=== PATIENT | male | born 1975 | race Caucasian/White ===

== ENCOUNTER 2017-06-10 19:36 | Observation (INO) ==
[2017-06-10] MEDS ORDERED: 0.9 % Sodium Chloride 1,000 ML IVC ONE ×2 (20:52→21:29)
[2017-06-10] MEDS ORDERED: Ondansetron 4 MG/2 ML VIAL IVP ONE (20:53)
[2017-06-10] MEDS ORDERED: *HR* HYDROmorphone (PF) 1 MG/ML SYRINGE IVP ONE ×2 (20:53→21:50)
--- NOTE | 2017-06-10 20:55 | Emergency Department Note ---
START Narrative - START START: 41-year-old male who comes in complaining of epigastric pain nausea vomiting. Had diarrhea 2 days ago. She states the pain is severe. It is going to have tenderness in the epigastrium. Obtain an imaging of lab give pain meds and IV fluids. Patient is tachycardic at 125.
[2017-06-10 21:09] LABS: Basophils # 0.1 K/mcL (0.0-0.2); Basophils % 0.6 %; Eosinophils % 0.1 %; Hemoglobin 14.6 g/dL (12.9-16.9); Immature Granulocytes % 0.7 % (0-4); Lymphocytes # 1.9 K/mcL (0.6-4.6); Mean Corpuscular Hemoglobin 29.4 pg (28.0-33.3); Mean Corpuscular Volume 86.5 fL (83.0-100.0); Mean Platelet Volume 8.8 fL (9.4-12.4); Monocytes % 4.8 %; Neutrophils # 18.2 K/mcL (1.6-8.9); Platelet Count 469 K/mcL (140-400); Red Blood Count 4.97 M/mcL (4.19-5.50); Red Cell Distribution Width 12.5 % (11.5-14.5); Segmented Neutrophils % 84.8 %
[2017-06-10 21:23] LABS: Bilirubin,Urine Negative (Negative); Blood,Urine Negative (Negative); Clarity,Urine Turbid (Clear); Color,Urine Yellow (Yellow); Glucose,Urine (UA) Normal (Normal); Ketones,Urine Negative (Negative); Leukocyte Esterase,Urine Negative (Negative); Nitrite,Urine Negative (Negative); Protein,Urine 100 mg/dL (Neg-Trace); Specific Gravity,Urine 1.014 (1.010-1.025); Urobilinogen,Urine Normal (Normal)
[2017-06-10 21:25] LABS: Bacteria,Urine None Seen per hpf (None-Few); Hyaline Casts,Urine None Seen per lpf (None-Few); RBC,Urine 15-30 per hpf (0-3); Squamous Epithelial Cell,Urine Many per lpf (None-Few); WBC,Urine 0-3 per hpf (0-3)
--- NOTE | 2017-06-10 21:30 | Emergency Department Note ---
Disposition Clinical Impression: Acute pancreatitis Qualifiers: Pancreatitis type: unspecified pancreatitis type Acute pancreatitis complication: unspecified Qualified Code(s): K85.90 - Acute pancreatitis without necrosis or infection, unspecified Disposition: Admitted As Inpatient Condition: Good Forms: ED Satisfaction Letter, Work/School Release General Adult HPI - General Chief complaint: ED Abdominal Pain Stated complaint: "Severe Abd Pain/N/V" Time Seen by Provider: 06/10/17 20:52 Source: patient, family Limitations: no limitations Nursing Notes Reviewed: Yes Vital Signs Reviewed: Yes - History of Present Illness HPI Narrative: 41-year-old male who reports that after lunch had relatively sudden onset of epigastric and mid abdomen pain he had nausea and vomiting associated with it. He has vomited numerous times since. The pain has improved. He does have difficulty finding a position of comfort. He denies any medical history. Denies taking any medications. He does admit to some alcohol use where he drinks one or 2 beers every couple of days. His most recent drink was 2 days ago. He states that he felt normal prior to lunch today. He denies any fever. Radiation: non-radiation Pain Severity: severe Pain Scale: 10 Consistency: constant Improves with: nothing Worsens with: nothing Associated symptoms: Reports: denies other symptoms Treatments Prior to Arrival: none - Related Data Home Medications Medication Instructions Recorded Confirmed Ibuprofen [Motrin] 400 mg PO Q6H PRN 06/10/17 06/10/17 Allergies Allergy/AdvReac Type Severity Reaction Status Date / Time Bee Pollen Allergy See Verified 06/10/17 20:49 Comments All systems ED: reviewed and negative except as stated. Constitutional: Denies: fever ENT ED: Denies: throat pain Cardiovascular: Denies: chest pain Gastrointestinal: Reports: abdominal pain, nausea, vomiting. Denies: diarrhea, constipation Genitourinary: Denies: dysuria Integumentary: Denies: rash Past Medical History - Past Medical History Medical history: Reports: non-contributory Psychiatric history: Reports: anxiety - Social History Smoking Status: Current every day smoker Smokeless Tobacco Status: No Alcohol use: Reports: rarely Drug use: Reports: none Physical Exam - General Limitations: no limitations General appearance: alert - Head Head exam: atraumatic - Eye Eye exam: Present: normal appearance, PERRL - ENT ENT exam: normal exam - Neck Neck exam: Present: normal inspection - Chest Chest inspection: Present: normal inspection - Respiratory Respiratory exam: Present: normal lung sounds bilaterally. Absent: respiratory distress - Cardiovascular Cardiovascular exam: Present: regular rate, normal rhythm - Abdominal Exam Abdominal exam: Present: soft, tenderness (epigastric pain on palpation.), guarding. Absent: rebound - Extremities Exam Extremities exam: Present: normal inspection - Neurological Exam Neurological exam: Present: alert, oriented X3 - Psychiatric Psychiatric exam: Present: normal affect, normal mood - Skin Skin exam: Present: warm, dry Course Course Narrative: CT shows stranding around the pancreas. amylase/lipase elevated. Clinically has pancreatitis also. Will treat with pain meds/fluids and admit. Vital Signs Temperature 97.9 F 06/10/17 20:49 Pulse Rate 125 06/10/17 20:49 Respiratory Rate 18 06/10/17 20:49 Blood Pressure 136/96 06/10/17 20:49 O2 Sat by Pulse Oximetry 96 06/10/17 20:49 Temperature 97.9 F 06/10/17 20:49 Pulse Rate 124 06/10/17 21:23 Respiratory Rate 20 06/10/17 21:23 Blood Pressure 138/89 06/10/17 21:23 O2 Sat by Pulse Oximetry 97 06/10/17 21:23 Oxygen Delivery Oxygen Delivery Room Air Medical Decision Making - Medical Records Medical records reviewed: Yes I reviewed the patient's medical records. - Lab Data Lab results reviewed: Yes I reviewed the patient's lab results. Result diagrams: 06/10/17 20:58 06/10/17 20:58 Lab Results 06/10/17 06/10/17 06/10/17 Range/Units 20:58 20:58 20:58 WBC 21.5 H (4.3-11.1) K/mcL RBC 4.97 (4.19-5.50) M/mcL Hgb 14.6 (12.9-16.9) g/dL Hct 43.0 (37.5-50.1) % MCV 86.5 (83.0-100.0) fL MCH 29.4 (28.0-33.3) pg MCHC 34.0 (31.6-35.5) g/dL RDW 12.5 (11.5-14.5) % Plt Count 469 H (140-400) K/mcL MPV 8.8 L (9.4-12.4) fL Immature Gran % 0.7 (0-4) % Seg Neutrophils % 84.8 % Lymphocytes % 9.0 % Monocytes % 4.8 % Eosinophils % 0.1 % Basophils % 0.6 % Neutrophils # 18.2 H (1.6-8.9) K/mcL Lymphocytes # 1.9 (0.6-4.6) K/mcL Monocytes # 1.0 (0.0-1.3) K/mcL Eosinophils # 0.0 (0.0-0.6) K/mcL Basophils # 0.1 (0.0-0.2) K/mcL Sodium 139 (136-145) mEq/L Potassium 4.0 (3.5-5.1) mEq/L Chloride 94 L (98-107) mEq/L Carbon Dioxide 37 H (23-29) mEq/L BUN 11 (6-20) mg/dL Creatinine 0.81 (0.70-1.30) mg/dL Est GFR ( Amer) > 60 (> 60) Est GFR (Non-Af Amer) > 60 (> 60) BUN/Creatinine Ratio 14 (6-26) Glucose 121 H (70-105) mg/dL Calculated Osmolality 289 (280-300) Lactic Acid 2.3 H (0.5-2.2) mmol/L Calcium 10.4 H (8.6-10.3) mg/dL Total Bilirubin 0.5 (0.3-1.0) mg/dL Direct Bilirubin 0.1 (0.0-0.2) mg/dL Indirect Bilirubin 0.4 (0.0-1.2) mg/dL AST 23 (13-39) Units/L ALT 21 (7-52) Units/L Alkaline Phosphatase 77 (34-104) Units/L Serum Total Protein 7.6 (6.4-8.9) g/dL Albumin 4.6 (3.5-5.7) g/dL Globulin 3.0 (2.4-3.5) g/dL Albumin/Globulin Ratio 1.5 (1.1-2.2) Amylase 222 H (29-103) Units/L Lipase 690 H (11-82) Units/L Urine Color (Yellow) Urine Clarity (Clear) Urine pH (5.0-8.0) pH Units Ur Specific [place] (1.010-1.025) Urine Protein (Neg-Trace) mg/dL Urine Glucose (UA) (Normal) mg/dL Urine Ketones (Negative) mg/dL Urine Blood (Negative) Urine Nitrite (Negative) Urine Bilirubin (Negative) Urine Urobilinogen (Normal) mg/dL Ur Leukocyte Esterase (Negative) Urine Microscopic RBC (0-3) per hpf Urine Microscopic WBC (0-3) per hpf Ur Squamous Epith Cells (None-Few) per lpf Urine Bacteria (None-Few) per hpf Hyaline Casts (None-Few) per lpf Ur Culture Indicated? (NO) 06/10/17 Range/Units 21:19 WBC (4.3-11.1) K/mcL RBC (4.19-5.50) M/mcL Hgb (12.9-16.9) g/dL Hct (37.5-50.1) % MCV (83.0-100.0) fL MCH (28.0-33.3) pg MCHC (31.6-35.5) g/dL RDW (11.5-14.5) % Plt Count (140-400) K/mcL MPV (9.4-12.4) fL Immature Gran % (0-4) % Seg Neutrophils % % Lymphocytes % % Monocytes % % Eosinophils % % Basophils % % Neutrophils # (1.6-8.9) K/mcL Lymphocytes # (0.6-4.6) K/mcL Monocytes # (0.0-1.3) K/mcL Eosinophils # (0.0-0.6) K/mcL Basophils # (0.0-0.2) K/mcL Sodium (136-145) mEq/L Potassium (3.5-5.1) mEq/L Chloride (98-107) mEq/L Carbon Dioxide (23-29) mEq/L BUN (6-20) mg/dL Creatinine (0.70-1.30) mg/dL Est GFR ( Amer) (> 60) Est GFR (Non-Af Amer) (> 60) BUN/Creatinine Ratio (6-26) Glucose (70-105) mg/dL Calculated Osmolality (280-300) Lactic Acid (0.5-2.2) mmol/L Calcium (8.6-10.3) mg/dL Total Bilirubin (0.3-1.0) mg/dL Direct Bilirubin (0.0-0.2) mg/dL Indirect Bilirubin (0.0-1.2) mg/dL AST (13-39) Units/L ALT (7-52) Units/L Alkaline Phosphatase (34-104) Units/L Serum Total Protein (6.4-8.9) g/dL Albumin (3.5-5.7) g/dL Globulin (2.4-3.5) g/dL Albumin/Globulin Ratio (1.1-2.2) Amylase (29-103) Units/L Lipase (11-82) Units/L Urine Color Yellow (Yellow) Urine Clarity Turbid A (Clear) Urine pH 8.0 (5.0-8.0) pH Units Ur Specific [place] 1.014 (1.010-1.025) Urine Protein 100 H (Neg-Trace) mg/dL Urine Glucose (UA) Normal (Normal) mg/dL Urine Ketones Negative (Negative) mg/dL Urine Blood Negative (Negative) Urine Nitrite Negative (Negative) Urine Bilirubin Negative (Negative) Urine Urobilinogen Normal (Normal) mg/dL Ur Leukocyte Esterase Negative (Negative) Urine Microscopic RBC 15-30 H (0-3) per hpf Urine Microscopic WBC 0-3 (0-3) per hpf Ur Squamous Epith Cells Many H (None-Few) per lpf Urine Bacteria None Seen (None-Few) per hpf Hyaline Casts None Seen (None-Few) per lpf Ur Culture Indicated? NO (NO) - Radiology Data Radiology results reviewed: Yes I reviewed the patient's radiology results.
[2017-06-10 21:36] LABS: Alanine Aminotransferase 21 Units/L (7-52); Albumin 4.6 g/dL (3.5-5.7); Albumin/Globulin Ratio 1.5 (1.1-2.2); Alkaline Phosphatase 77 Units/L (34-104); Amylase 222 Units/L (29-103); Aspartate Amino Transferase 23 Units/L (13-39); BUN/Creatinine Ratio 14 (6-26); Bilirubin,Direct 0.1 mg/dL (0.0-0.2); Bilirubin,Indirect 0.4 mg/dL (0.0-1.2); Bilirubin,Total 0.5 mg/dL (0.3-1.0); Blood Urea Nitrogen 11 mg/dL (6-20); Calcium 10.4 mg/dL (8.6-10.3); Carbon Dioxide 37 mEq/L (23-29); Chloride 94 mEq/L (98-107); Glucose 121 mg/dL (70-105); Osmolality,Calculated 289 (280-300); Sodium 139 mEq/L (136-145); Total Protein 7.6 g/dL (6.4-8.9); eGFR For African Americans > 60 (> 60); eGFR For Non-African Americans > 60 (> 60)
[2017-06-10] MEDS ORDERED: *HR* Promethazine 25 MG/ML VIAL IVP ONE (21:50)
--- NOTE | 2017-06-10 21:54 | Emergency Department Note ---
START Narrative - START START: I examined this patient and my medical decision-making was reviewed with the Resident Physician. I agree with the documented findings, disposition and treatment plan as described except to the extent set forth below. 41 year old male with acute onset of abdominal pain with nausea and it appears that he has acute uncomplicated pancreatitis with an elevation in his amylase/ lipase. We will admit to medicine for pain managment and acute pancreatitis.
[2017-06-10 22:25] LABS: Lipase 690 Units/L (11-82)
[2017-06-11] MEDS ORDERED: Naloxone 0.4 MG/ML INJ IVP PRN (00:04)
[2017-06-11] MEDS ORDERED: *HR* HYDROmorphone (PF) 1 MG/ML SYRINGE IVP PRN (00:04)
[2017-06-11] MEDS ORDERED: Acetaminophen 325 MG TABLET PO PRN (00:04)
--- NOTE | 2017-06-11 00:04 | Internal Med History&Physical ---
<Kamryn Walsh - Last Filed: 06/11/17 01:38> Date of Encounter: 06/11/17 Time of Encounter: 00:03 Assessment and Plan (1) Acute pancreatitis Current visit: Yes Status: Acute Patient is mildly uncomfortable but appears in no acute distress. Patient is afebrile. Labs reveal elevated white blood count at 21.5. lipase elevated at 690 and amylase elevated at 222. Lactic acid mildly elevated at 2.3. Per radiology report, CT of abdomen and pelvis showed findings consistent with acute uncomplicated pancreatitis. 1. Will have patient NPO. 2. Give patient aggressive IV fluids. 3. Will symptomatically control for nausea and vomiting. 4. Pain control. 5. Will continue to monitor the patient closely. Qualifiers: Pancreatitis type: unspecified pancreatitis type Acute pancreatitis complication: unspecified Qualified Code(s): K85.90 - Acute pancreatitis without necrosis or infection, unspecified Internal Medicine - H&P: HPI Chief complaint: abdominal pain Admitted From: Emergency Dept History of present illness: Mr. Hanley is a 41 year old male with no significant past medical history who presents to the ED today complaining of nausea, vomiting, and abdominal pain. Patient states that around noon today, he became nauseous and started vomiting. The patient admits multiple episodes of vomiting but denies any hematemesis. He describes a sudden onset of epigastric abdominal pain and bilateral lower abdominal pain. He admits the abdominal pain is worse with palpation and moving and improves with lying still. He denies ever having this pain and denies any fever, headaches, vision changes, diaphoresis, chest pain, shortness of breath, difficulty breathing, blood in his stool, diarrhea, numbness or tingling, or any weaknesses. He admits he still has his gallbladder but denies any history of gallstones or alcohol abuse. He admits drinking socially and occasionally. Past Med Surg Social Fam HX - Past Medical History Medical history: non-contributory Psychiatric history: anxiety - Social History Smoking Status: Current every day smoker Smokeless Tobacco Status: No Alcohol use: rarely Drug use: none Internal Medicine - H&P: Meds Ibuprofen [Motrin] 400 mg PO Q6H PRN 06/10/17 [History] 3 Allergy/AdvReac Type Severity Reaction Status Date / Time Bee Pollen Allergy See Verified 06/10/17 20:49 Comments All Systems PM: A 10-system review of systems was performed and is negative for pertinent findings except as documented above in the HPI. - Constitutional Vitals: Temp Pulse Resp BP Pulse Ox 97.9 F 124 20 138/89 97 06/10/17 20:49 06/10/17 21:23 06/10/17 21:23 06/10/17 21:23 06/10/17 21:23 General appearance: Present: A&O X 3, no acute distress Exam: Patient appears anxious but in no acute distress. - Head Head exam: Present: atraumatic, normocephalic - Eye Eye exam: Present: PERRL, conjuntiva pink, sclera anicteric Pupils: Present: PERRL - Neck Neck exam general surgery: Present: supple, trachea midline. Absent: lymphadenopathy - Respiratory Respiratory exam: Present: CTAB. Absent: accessory muscle use, rales, rhonchi, wheezes - Cardiovascular Cardiovascular exam: Present: RRR, +S1, +S2. Absent: diastolic murmur, gallop, rubs, systolic murmur - GI/Abdominal GI/Abdominal exam: Present: normal bowel sounds, soft, tenderness (tenderness to palpation in the epigastric region. ), no peritoneal signs. Absent: distended - Expanded GI/Abdominal Exam GI/Abdominal exam expanded: Absent: ascites, Marie's sign, tenderness at McBurney's Point - Extremities Exam Extremities exam: Present: warm, radial pulses palpable and symmetrical. Absent : calf tenderness, cyanotic, pedal edema - Neurological Exam Neurological exam: Present: CN II-XII intact, oriented X3, no focal deficits. Absent: pronater drift, facial droop, speech deficit - Skin Skin exam: Present: dry, intact Internal Med - H&P Results - Labs CBC & Chem 7: 06/11/17 00:51 06/11/17 00:51 Labs: Short CBC 06/10/17 Range/Units 20:58 WBC 21.5 H (4.3-11.1) K/mcL Hgb 14.6 (12.9-16.9) g/dL Hct 43.0 (37.5-50.1) % Plt Count 469 H (140-400) K/mcL Neutrophils # 18.2 H (1.6-8.9) K/mcL BMP 06/10/17 20:58 Sodium 139 Potassium 4.0 Chloride 94 L Carbon Dioxide 37 H BUN 11 Creatinine 0.81 Glucose 121 H Calcium 10.4 H Liver Function 06/10/17 Range/Units 20:58 Total Bilirubin 0.5 (0.3-1.0) mg/dL Direct Bilirubin 0.1 (0.0-0.2) mg/dL AST 23 (13-39) Units/L ALT 21 (7-52) Units/L Alkaline Phosphatase 77 (34-104) Units/L Albumin 4.6 (3.5-5.7) g/dL Urine 06/10/17 Range/Units 21:19 Urine Color Yellow (Yellow) Urine Clarity Turbid A (Clear) Urine pH 8.0 (5.0-8.0) pH Units Ur Specific [place] 1.014 (1.010-1.025) Urine Protein 100 H (Neg-Trace) mg/dL Urine Glucose (UA) Normal (Normal) mg/dL - Impressions ITS Impressions Abdomen/Pelvis CT 06/10/17 20:52 IMPRESSION: 1. Findings consistent with acute uncomplicated pancreatitis. There is mild secondary duodenitis with no obstruction. 2. Questionable biliary sludge with no definite cholelithiasis. Normal common bile duct. D/ / 06/10/2017 22:14:13 Dino Victor MD / keara Interpreting Provider: Dino Victor MD <Aria Hansen - Last Filed: 06/11/17 04:41> Date of Encounter: 06/11/17 Time of Encounter: 02:15 Internal Medicine - H&P: HPI History of present illness: Mr. Hanley is a 41 year old male All Systems PM: A 10-system review of systems was performed and is negative for pertinent findings except as documented above in the HPI. - Constitutional Vitals: Temp Pulse Resp BP Pulse Ox 97.9 F 115 20 117/86 97 06/10/17 20:49 06/11/17 02:00 06/11/17 04:31 06/11/17 04:31 06/11/17 02:00 Internal Med - H&P Results - Labs CBC & Chem 7: 06/11/17 00:51 06/11/17 00:51 - Attending Attestation Patient is a 41y/o male admitted for abd pain secondary to acute pancreatitis Patient independently seen and examined will continue aggressive pain control IV fluids antiemetics as needed NPO case discussed with resident physician Dr. Walsh, I agree with her documented findings, assessment, and plan.
[2017-06-11] MEDS ORDERED: Ibuprofen 400 MG TABLET PO PRN (00:11)
[2017-06-11] MEDS: *HR* Morphine 2 MG/ML SYRINGE IVP PRN ×4 (00:38→17:55)
[2017-06-11] MEDS: Ondansetron 4 MG/2 ML VIAL IVP PRN ×2 (00:39→17:56)
[2017-06-11 00:58] LABS: Basophils # 0.1 K/mcL (0.0-0.2); Basophils % 0.5 %; Eosinophils # 0.1 K/mcL (0.0-0.6); Eosinophils % 0.3 %; Hematocrit 38.2 % (37.5-50.1); Hemoglobin 13.3 g/dL (12.9-16.9); Immature Granulocytes % 0.6 % (0-4); Immature Platelets 2.2 % (1.1-6.1); Lymphocytes # 1.9 K/mcL (0.6-4.6); Lymphocytes % 10.5 %; Mean Corpuscular HGB Conc 34.8 g/dL (31.6-35.5); Mean Platelet Volume 8.8 fL (9.4-12.4); Monocytes # 0.7 K/mcL (0.0-1.3); Monocytes % 3.9 %; Neutrophils # 15.5 K/mcL (1.6-8.9); Platelet Count 414 K/mcL (140-400); Red Blood Count 4.44 M/mcL (4.19-5.50); Red Cell Distribution Width 12.4 % (11.5-14.5); Segmented Neutrophils % 84.2 %
[2017-06-11 01:07] LABS: Bilirubin,Total 0.6 mg/dL (0.3-1.0); Calcium 8.8 mg/dL (8.6-10.3); Carbon Dioxide 30 mEq/L (23-29); Chloride 102 mEq/L (98-107); Magnesium 1.5 mg/dL (1.6-2.6); Potassium 3.7 mEq/L (3.5-5.1); Sodium 140 mEq/L (136-145)
[2017-06-11 01:13] LABS: Alanine Aminotransferase 17 Units/L (7-52); Albumin/Globulin Ratio 1.7 (1.1-2.2); Alkaline Phosphatase 72 Units/L (34-104); Aspartate Amino Transferase 19 Units/L (13-39); BUN/Creatinine Ratio 14 (6-26); Blood Urea Nitrogen 11 mg/dL (6-20); Chol/HDL Ratio 2.3 (0-4.9); Cholesterol 127 mg/dL (< 200); Globulin 2.4 g/dL (2.4-3.5); Glucose 105 mg/dL (70-105); HDL Cholesterol 56 mg/dL (40-59); LDL Cholesterol,Calculated 53 mg/dL (0-99); Osmolality,Calculated 290 (280-300); Phosphorous 3.4 mg/dL (2.7-4.5); Total Protein 6.4 g/dL (6.4-8.9); Triglycerides 88 mg/dL (< 150); eGFR For African Americans > 60 (> 60); eGFR For Non-African Americans > 60 (> 60)
[2017-06-11] MEDS ORDERED: Nicotine 21 MG PATCH.TD24 TD ONE (02:37)
[2017-06-11] MEDS ORDERED: *HR* HYDROmorphone (PF) 1 MG/ML SYRINGE ONE (03:23)
[2017-06-11] MEDS ORDERED: *HR* HYDROmorphone (PF) 1 MG/ML SYRINGE IVP ONE (03:27)
[2017-06-11] MEDS: 0.9 % Sodium Chloride 1,000 ML IVC SCH ×4 (03:29→21:01)
[2017-06-11] MEDS: *HR* Heparin 5,000 UNIT/ML VIAL SQ SCH ×2 (04:52→13:54)
[2017-06-11] MEDS: *HR* HYDROmorphone (PF) 1 MG/ML SYRINGE IVP PRN ×2 (04:53→09:03)
[2017-06-11] MEDS ORDERED: Ketorolac 30 MG/ML VIAL IVP ONE ×2 (06:24→09:59)
[2017-06-11] MEDS ORDERED: Nicotine 21 MG PATCH.TD24 TD SCH (09:00)
[2017-06-11] MEDS: *HR* Promethazine 25 MG/ML VIAL IVP PRN ×2 (09:39→14:50)
[2017-06-11] MEDS ORDERED: 0.9 % Sodium Chloride 1,000 ML IVC ONE (10:00)
[2017-06-11] MEDS: *HR* LORazepam 2 MG/ML VIAL IVP PRN ×2 (11:11→19:57)
[2017-06-11 11:31] LABS: Bilirubin,Urine Small (Negative); Blood,Urine Small (Negative); Clarity,Urine Cloudy (Clear); Color,Urine Orange (Yellow); Glucose,Urine (UA) Normal (Normal); Ketones,Urine Negative (Negative); Leukocyte Esterase,Urine Small (Negative); Nitrite,Urine Negative (Negative); Protein,Urine 100 mg/dL (Neg-Trace); Specific Gravity,Urine 1.024 (1.010-1.025); Urobilinogen,Urine Normal (Normal)
[2017-06-11] MEDS: Nicotine 21 MG PATCH.TD24 TD SCH (16:54)
[2017-06-11] MEDS: Ketorolac 30 MG/ML VIAL IVP PRN (16:54)
--- NOTE | 2017-06-11 20:12 | Internal Med Progress Note ---
Date of Encounter: 06/11/17 Time of Encounter: 20:10 (Seen early this am) - Assessment and plan (1) Acute pancreatitis Current Visit: Yes Status: Acute Assessment and plan: Suspect ETOH as cause despite denial. Liver enzymes normal. Continue NPO and IVFs. Add Ativan for anxiety. Qualifiers: Pancreatitis type: unspecified pancreatitis type Acute pancreatitis complication: unspecified Qualified Code(s): K85.90 - Acute pancreatitis without necrosis or infection, unspecified (2) Nausea & vomiting Current Visit: Yes Status: Resolved Assessment and plan: continue antiemetics, but resolved now. Qualifiers: Vomiting type: unspecified Vomiting Intractability: non-intractable Qualified Code(s): R11.2 - Nausea with vomiting, unspecified - Time Spent With Patient Greater than 35 minutes - Subjective Interval history: Agitated, angry and complaining abdominal pain is not well controlled. No N/V?D. - Constitutional Vitals: Temp Pulse Resp BP Pulse Ox 98.3 F 101 16 115/66 98 06/11/17 20:07 06/11/17 20:07 06/11/17 20:07 06/11/17 20:07 06/11/17 20:07 General appearance: Present: mild distress, A&O X 3, answers questions appropriately. Absent: obese - Head Head exam: Present: atraumatic, normal inspection, normocephalic - Eye Eye exam: Present: PERRL, conjuntiva pink, sclera anicteric. Absent: conjunctival injection, scleral icterus Pupils: Present: PERRL - Neck Neck exam general surgery: Present: supple, trachea midline. Absent: lymphadenopathy - Respiratory Respiratory exam: Present: CTAB. Absent: accessory muscle use, rales, rhonchi, wheezes - Cardiovascular Cardiovascular exam: Present: RRR, +S1, +S2. Absent: diastolic murmur, gallop, rubs, systolic murmur - GI/Abdominal GI/Abdominal exam: Present: normal bowel sounds, soft, no peritoneal signs. Absent: distended, tenderness - Extremities Exam Extremities exam: Present: warm. Absent: calf tenderness, cyanotic, pedal edema - Neurological Exam Neurological exam: Present: CN II-XII intact, oriented X3, no focal deficits. Absent: pronater drift, facial droop, speech deficit - Skin Skin exam: Present: dry, intact Internal Medicine: Result - Labs CBC & Chem 7: 06/11/17 00:51 06/11/17 00:51 Labs: Urine 06/11/17 Range/Units 11:23 Urine Color [place] A (Yellow) Urine Clarity Cloudy A (Clear) Urine pH 7.0 (5.0-8.0) pH Units Ur Specific [place] 1.024 (1.010-1.025) Urine Protein 100 H (Neg-Trace) mg/dL Urine Glucose (UA) Normal (Normal) mg/dL Consult Discharge Plan - Plan Referrals: NONE,PCP [Primary Care Provider] -
[2017-06-12] MEDS: Ondansetron 4 MG/2 ML VIAL IVP PRN ×2 (02:14→11:30)
[2017-06-12] MEDS: *HR* Morphine 2 MG/ML SYRINGE IVP PRN ×5 (02:14→21:57)
[2017-06-12] MEDS: *HR* Heparin 5,000 UNIT/ML VIAL SQ SCH ×2 (02:15→15:36)
[2017-06-12] MEDS: 0.9 % Sodium Chloride 1,000 ML IVC SCH ×5 (02:30→14:14)
[2017-06-12] MEDS: *HR* LORazepam 2 MG/ML VIAL IVP PRN ×2 (09:27→19:20)
[2017-06-12] MEDS: Ketorolac 30 MG/ML VIAL IVP PRN ×2 (09:31→15:42)
[2017-06-12] MEDS: Loratadine 10 MG TABLET PO SCH (11:19)
[2017-06-12 11:22] LABS: Alanine Aminotransferase 13 Units/L (7-52); Albumin 3.3 g/dL (3.5-5.7); Albumin/Globulin Ratio 1.4 (1.1-2.2); Alkaline Phosphatase 74 Units/L (34-104); Aspartate Amino Transferase 22 Units/L (13-39); BUN/Creatinine Ratio 25 (6-26); Bilirubin,Total 0.7 mg/dL (0.3-1.0); Blood Urea Nitrogen 15 mg/dL (6-20); Calcium 8.1 mg/dL (8.6-10.3); Carbon Dioxide 24 mEq/L (23-29); Chloride 109 mEq/L (98-107); Globulin 2.3 g/dL (2.4-3.5); Glucose 60 mg/dL (70-105); Osmolality,Calculated 289 (280-300); Potassium 3.7 mEq/L (3.5-5.1); Sodium 140 mEq/L (136-145); Total Protein 5.6 g/dL (6.4-8.9); eGFR For African Americans > 60 (> 60); eGFR For Non-African Americans > 60 (> 60)
[2017-06-12] MEDS: Nicotine 21 MG PATCH.TD24 TD SCH (11:29)
[2017-06-12 12:01] LABS: Lipase 844 Units/L (11-82)
--- NOTE | 2017-06-12 21:30 | Internal Med Progress Note ---
Date of Encounter: 06/12/17 Time of Encounter: 21:28 (Seen early today) - Assessment and plan (1) Acute pancreatitis Current Visit: Yes Status: Acute Assessment and plan: Suspect ETOH as cause despite denial. Liver enzymes normal. His Lipase increased again. Return to NPO but decrease IVFs. Continue Ativan for anxietyand try to avoid Dilaudid. Qualifiers: Pancreatitis type: unspecified pancreatitis type Acute pancreatitis complication: unspecified Qualified Code(s): K85.90 - Acute pancreatitis without necrosis or infection, unspecified (2) Nausea & vomiting Current Visit: Yes Status: Resolved Qualifiers: Vomiting type: unspecified Vomiting Intractability: non-intractable Qualified Code(s): R11.2 - Nausea with vomiting, unspecified - Subjective Interval history: No N/V/D but abdominal pain worse. Calmer today and less agitiated. - Constitutional Vitals: Temp Pulse Resp BP Pulse Ox 98.3 F 96 14 129/68 97 06/12/17 20:55 06/12/17 20:55 06/12/17 20:55 06/12/17 20:55 06/12/17 20:55 General appearance: Present: mild distress, A&O X 3, answers questions appropriately. Absent: obese - Head Head exam: Present: atraumatic, normocephalic - Eye Eye exam: Present: PERRL, conjuntiva pink, sclera anicteric Pupils: Present: PERRL - Neck Neck exam general surgery: Present: supple, trachea midline. Absent: lymphadenopathy - Respiratory Respiratory exam: Present: CTAB. Absent: accessory muscle use, rales, rhonchi, stridor, wheezes - Cardiovascular Cardiovascular exam: Present: RRR, +S1, +S2. Absent: diastolic murmur, gallop, rubs, systolic murmur - GI/Abdominal GI/Abdominal exam: Present: normal bowel sounds, soft, tenderness, no peritoneal signs. Absent: distended, rebound - Extremities Exam Extremities exam: Present: warm. Absent: calf tenderness, cyanotic, pedal edema - Neurological Exam Neurological exam: Present: CN II-XII intact, oriented X3, no focal deficits. Absent: pronater drift, facial droop, speech deficit - Psychiatric Psychiatric exam: Present: agitated - Skin Skin exam: Present: dry, intact Internal Medicine: Result - Labs CBC & Chem 7: 06/11/17 00:51 06/12/17 10:38 Labs: BMP 06/12/17 10:38 Sodium 140 Potassium 3.7 Chloride 109 H Carbon Dioxide 24 BUN 15 Creatinine 0.60 L Glucose 60 L Calcium 8.1 L Liver Function 06/12/17 Range/Units 10:38 Total Bilirubin 0.7 (0.3-1.0) mg/dL AST 22 (13-39) Units/L ALT 13 (7-52) Units/L Alkaline Phosphatase 74 (34-104) Units/L Albumin 3.3 L (3.5-5.7) g/dL Consult Discharge Plan - Plan Referrals: NONE,PCP [Primary Care Provider] -
[2017-06-13] MEDS: Ketorolac 30 MG/ML VIAL IVP PRN ×2 (00:28→13:27)
[2017-06-13] MEDS: 0.9 % Sodium Chloride 1,000 ML IVC SCH ×2 (02:33→18:07)
[2017-06-13] MEDS: *HR* Heparin 5,000 UNIT/ML VIAL SQ SCH ×2 (02:34→15:10)
[2017-06-13] MEDS: Loratadine 10 MG TABLET PO SCH (08:34)
[2017-06-13] MEDS: Nicotine 21 MG PATCH.TD24 TD SCH (08:34)
[2017-06-13] MEDS: *HR* Morphine 2 MG/ML SYRINGE IVP PRN ×3 (08:36→22:13)
[2017-06-13] MEDS: *HR* LORazepam 2 MG/ML VIAL IVP PRN ×2 (15:09→23:01)
[2017-06-13] MEDS ORDERED: Ketorolac 30 MG/ML VIAL IVP PRN (15:32)
--- NOTE | 2017-06-13 15:53 | Internal Med Progress Note ---
Date of Encounter: 06/13/17 Time of Encounter: 15:53 - Assessment and plan (1) Acute pancreatitis Current Visit: Yes Status: Acute Assessment and plan: Able to advance diet again and hopefully d/c over weekend. Continue to decrease dose of opiods. Qualifiers: Pancreatitis type: unspecified pancreatitis type Acute pancreatitis complication: unspecified Qualified Code(s): K85.90 - Acute pancreatitis without necrosis or infection, unspecified (2) Nausea & vomiting Current Visit: Yes Status: Resolved Qualifiers: Vomiting type: unspecified Vomiting Intractability: non-intractable Qualified Code(s): R11.2 - Nausea with vomiting, unspecified - Time Spent With Patient Greater than 35 minutes - Subjective Interval history: No N/V/D and abdominal pain improved. He was made NPO again yesterday after pain worsened and Lipase increased. Able to advance diet to clears today - Constitutional Vitals: Temp Pulse Resp BP Pulse Ox 98.4 F 110 16 142/82 99 06/13/17 15:06 06/13/17 15:06 06/13/17 15:06 06/13/17 15:06 06/13/17 15:06 General appearance: Present: A&O X 3, answers questions appropriately. Absent: obese - Head Head exam: Present: atraumatic, normocephalic - Eye Eye exam: Present: EOMI, PERRL, conjuntiva pink, sclera anicteric Pupils: Present: PERRL - Neck Neck exam general surgery: Present: supple, trachea midline. Absent: lymphadenopathy, nuchal rigidity, thyromegaly - Respiratory Respiratory exam: Present: CTAB. Absent: accessory muscle use, rales, respiratory distress, rhonchi, stridor, wheezes, tachypnea - Cardiovascular Cardiovascular exam: Present: RRR, +S1, +S2. Absent: diastolic murmur, gallop, rubs, systolic murmur - GI/Abdominal GI/Abdominal exam: Present: normal bowel sounds, soft, no peritoneal signs. Absent: distended, firm, guarding, hepatomegaly, splenomegaly, tenderness - Extremities Exam Extremities exam: Present: warm, radial pulses palpable and symmetrical. Absent : calf tenderness, cyanotic, pedal edema - Neurological Exam Neurological exam: Present: CN II-XII intact, oriented X3, no focal deficits. Absent: pronater drift, facial droop, speech deficit - Skin Skin exam: Present: dry, intact Internal Medicine: Result - Labs CBC & Chem 7: 06/11/17 00:51 06/12/17 10:38 Consult Discharge Plan - Plan Referrals: NONE,PCP [Primary Care Provider] -
[2017-06-14] MEDS: *HR* Heparin 5,000 UNIT/ML VIAL SQ SCH ×2 (05:16→14:23)
[2017-06-14] MEDS: *HR* Morphine 2 MG/ML SYRINGE IVP PRN ×5 (05:23→23:12)
[2017-06-14] MEDS: 0.9 % Sodium Chloride 1,000 ML IVC SCH ×2 (05:28→19:09)
[2017-06-14 07:48] LABS: BUN/Creatinine Ratio 10 (6-26); Blood Urea Nitrogen 5 mg/dL (6-20); Calcium 7.9 mg/dL (8.6-10.3); Carbon Dioxide 25 mEq/L (23-29); Chloride 113 mEq/L (98-107); Glucose 96 mg/dL (70-105); Osmolality,Calculated 293 (280-300); Potassium 3.1 mEq/L (3.5-5.1); Sodium 143 mEq/L (136-145); eGFR For African Americans > 60 (> 60); eGFR For Non-African Americans > 60 (> 60)
[2017-06-14 08:17] LABS: Basophils # 0.1 K/mcL (0.0-0.2); Basophils % 0.5 %; Eosinophils # 0.4 K/mcL (0.0-0.6); Eosinophils % 4.4 %; Immature Granulocytes % 0.2 % (0-4); Lymphocytes # 2.1 K/mcL (0.6-4.6); Lymphocytes % 21.5 %; Mean Corpuscular Volume 88.2 fL (83.0-100.0); Mean Platelet Volume 9.9 fL (9.4-12.4); Monocytes # 0.6 K/mcL (0.0-1.3); Monocytes % 6.6 %; Neutrophils # 6.4 K/mcL (1.6-8.9); Platelet Count 273 K/mcL (140-400); Red Cell Distribution Width 12.5 % (11.5-14.5); Segmented Neutrophils % 66.8 %
[2017-06-14 08:19] LABS: Hemoglobin 10.2 g/dL (12.9-16.9)
[2017-06-14 09:21] LABS: Lipase 866 Units/L (11-82)
[2017-06-14] MEDS: Nicotine 21 MG PATCH.TD24 TD SCH (10:14)
[2017-06-14] MEDS: Loratadine 10 MG TABLET PO SCH (10:14)
--- NOTE | 2017-06-14 10:50 | Internal Med Progress Note ---
Date of Encounter: 06/14/17 Time of Encounter: 10:49 - Assessment and plan (1) Acute pancreatitis Current Visit: Yes Status: Acute Assessment and plan: Able to advance diet again and hopefully d/c over weekend. Continue to decrease dose of opiods. Continue to advance diet. Qualifiers: Pancreatitis type: unspecified pancreatitis type Acute pancreatitis complication: unspecified Qualified Code(s): K85.90 - Acute pancreatitis without necrosis or infection, unspecified (2) Nausea & vomiting Current Visit: Yes Status: Resolved Qualifiers: Vomiting type: unspecified Vomiting Intractability: non-intractable Qualified Code(s): R11.2 - Nausea with vomiting, unspecified - Subjective Interval history: No N/V/D and abdominal pain continues to improve. - Constitutional Vitals: Temp Pulse Resp BP Pulse Ox 97.9 F 88 16 107/64 95 06/14/17 05:30 06/14/17 05:30 06/14/17 05:30 06/14/17 05:30 06/14/17 05:30 General appearance: Present: A&O X 3, answers questions appropriately. Absent: obese Internal Medicine: Result - Labs CBC & Chem 7: 06/14/17 06:21 06/14/17 10:47 Labs: Short CBC 06/14/17 Range/Units 06:21 WBC 9.6 (4.3-11.1) K/mcL Hgb 10.2 L D (12.9-16.9) g/dL Hct 30.0 L (37.5-50.1) % Plt Count 273 (140-400) K/mcL Neutrophils # 6.4 (1.6-8.9) K/mcL BMP 06/14/17 06:21 Sodium 143 Potassium 3.1 L Chloride 113 H Carbon Dioxide 25 BUN 5 L Creatinine 0.50 L Glucose 96 Calcium 7.9 L Consult Discharge Plan - Plan Referrals: NONE,PCP [Primary Care Provider] -
[2017-06-14 13:53] LABS: BUN/Creatinine Ratio 8 (6-26); Blood Urea Nitrogen 5 mg/dL (6-20); Calcium 8.8 mg/dL (8.6-10.3); Carbon Dioxide 23 mEq/L (23-29); Chloride 111 mEq/L (98-107); Glucose 79 mg/dL (70-105); Osmolality,Calculated 294 (280-300); Potassium 3.3 mEq/L (3.5-5.1); Sodium 144 mEq/L (136-145); eGFR For African Americans > 60 (> 60); eGFR For Non-African Americans > 60 (> 60)
[2017-06-14 13:54] LABS: Alanine Aminotransferase 21 Units/L (7-52); Alkaline Phosphatase 92 Units/L (34-104); Aspartate Amino Transferase 36 Units/L (13-39); Bilirubin,Total 0.5 mg/dL (0.3-1.0); Total Protein 6.8 g/dL (6.4-8.9)
[2017-06-14 13:55] LABS: Albumin 3.6 g/dL (3.5-5.7); Albumin/Globulin Ratio 1.1 (1.1-2.2); Globulin 3.2 g/dL (2.4-3.5)
[2017-06-14] MEDS: *HR* LORazepam 2 MG/ML VIAL IVP PRN (16:23)
[2017-06-15] MEDS: *HR* LORazepam 2 MG/ML VIAL IVP PRN ×2 (00:06→12:40)
[2017-06-15] MEDS: *HR* Heparin 5,000 UNIT/ML VIAL SQ SCH (03:15)
[2017-06-15] MEDS: *HR* Morphine 2 MG/ML SYRINGE IVP PRN ×3 (03:17→12:03)
[2017-06-15 07:40] VITALS: BP 137/82
[2017-06-15] MEDS: Loratadine 10 MG TABLET PO SCH (07:57)
[2017-06-15] MEDS: Nicotine 21 MG PATCH.TD24 TD SCH (07:57)
[2017-06-15] MEDS: 0.9 % Sodium Chloride 1,000 ML IVC SCH (08:33)
[2017-06-15] MEDS ORDERED: *HR* HYDROcodone/Acet 5/325 mg TABLET PO PRN (11:19)
--- NOTE | 2017-06-15 11:19 | Discharge Summary ---
Date of Encounter: 06/19/17 Time of Encounter: 11:16 - Discharge Diagnosis (1) Acute pancreatitis Priority: Primary Status: Acute Comments: 1) Acute pancreatitis Current Visit: Yes Status: Acute Assessment and plan: Able to advance diet again and hopefully d/c over weekend. Continue to decrease dose of opiods. Continue to advance diet. Qualifiers: Pancreatitis type: unspecified pancreatitis type Acute pancreatitis complication: unspecified Qualified Code(s): K85.90 - Acute pancreatitis without necrosis or infection, unspecified The patient was kept NPO and allowed bowel rest. His diet was slowly advanced and he tollerated it well without N/V/D or recurrence of his abdominal pain. His repeat Lipsase was initially lower but then slightly increased after initially advancing his diet. His diet was readjusted and then slowly advanced again without recurrence of symptoms. He was discharged to home in stable condition with instructions to continue to advance his diet and to f/u with his PCP. (2) Nausea & vomiting Current Visit: Yes Status: Resolved Qualifiers: Vomiting type: unspecified Vomiting Intractability: non-intractable Qualified Code(s): R11.2 - Nausea with vomiting, unspecified Qualifiers: Pancreatitis type: unspecified pancreatitis type Acute pancreatitis complication: unspecified Qualified Code(s): K85.90 - Acute pancreatitis without necrosis or infection, unspecified (2) Nausea & vomiting Priority: Primary Status: Acute Comments: His nausea and vomiting had completely resolved. Qualifiers: Vomiting type: unspecified Vomiting Intractability: non-intractable Qualified Code(s): R11.2 - Nausea with vomiting, unspecified - Discharge Medications Prescriptions: HYDROcodone/Acet 5/325 mg [Nash 5-325 mg] 1 tab PO Q6HR PRN 5 Days #20 tablet PRN Reason: Pain Home Medications: Ibuprofen [Motrin] 400 mg PO Q6H PRN 06/10/17 [History] HYDROcodone/Acet 5/325 mg [Nash 5-325 mg] 1 tab PO Q6HR PRN 5 Days #20 tablet 06/15/17 [Rx] Tramadol HCl [Ultram] 50 mg PO TID PRN #12 tab 06/18/17 [Rx] Allergies/Adverse Reactions: 3 Allergy/AdvReac Type Severity Reaction Status Date / Time Bee Pollen Allergy See Verified 06/10/17 20:49 Comments Date of admission: 06/11/17 04:25 Primary care physician: PCP NONE Consults: none Discharging clinician: Lamonte Watson Anticipated date of discharge: 06/15/17 - Patient Status Disposition: Home, Self-Care Condition: Good - Discharge Instructions Instructions: Hydrocodone/Acetaminophen (By mouth), Pancreatitis (DC) Follow Up With: NONE,PCP [Primary Care Provider] - Hospital course: The patient is a 41 year old male with no significant past medical history who presented in the ED complaining of nausea, vomiting, and abdominal pain. He described a sudden onset of epigastric abdominal pain and bilateral lower abdominal pain. He denies having this pain and denies any fever, headaches, vision changes, diaphoresis, chest pain, shortness of breath, difficulty breathing, blood in his stool, diarrhea, numbness or tingling, or any weaknesses. He also denied any history of gallstones or alcohol abuse but later inquired if a "cocktail given to him" could have caused his symptoms. He then admited drinking occasionally. After bowel rest his symptoms resolved and he was then discharged to home in stable condition. Time spent discussing smoking cessation with patient: more than 10 minutes - Time Spent with Patient Total time spent providing and/or coordinating discharge services: Greater than 30 minutes - Constitutional Vitals: Temp Pulse Resp BP Pulse Ox 98.2 F 70 15 137/82 97 06/15/17 07:35 06/15/17 07:35 06/15/17 07:35 06/15/17 07:35 06/15/17 07:35 General appearance: Present: A&O X 3, answers questions appropriately. Absent: obese
== END 2017-06-15 13:15 | disposition home or self-care (01) ==
LOC: EMEROO 19:36 → 3ANU 19:36
PROVIDERS: ADMIT Internal Medicine; ATTEND Internal Medicine